=== PATIENT | female | born 1995 | race Caucasian/White ===

== ENCOUNTER 2017-02-16 17:51 | Observation (INO) ==
[2017-02-16] MEDS ORDERED: 0.9 % Sodium Chloride 1,000 ML IVC ONE ×2 (18:49→21:04)
--- NOTE | 2017-02-16 18:53 | Emergency Department Note ---
Disposition Clinical Impression: SIRS (systemic inflammatory response syndrome), Drug abuse Cellulitis Qualifiers: Site of cellulitis: extremity Site of cellulitis of extremity: upper extremity Laterality: right Qualified Code(s): L03.113 - Cellulitis of right upper limb Disposition: Admitted As Inpatient Condition: Fair Referrals: NO,PCP [Primary Care Provider] - Forms: ED Satisfaction Letter Time of Disposition: 20:55 Skin/Abscess/FB HPI Chief complaint: ED Skin/Abscess/Foreign Body Stated complaint: abscess R arm Time Seen by Provider: 02/16/17 18:29 Source: patient, family Mode of arrival: ambulatory Limitations: no limitations Nursing Notes Reviewed: Yes Vital Signs Reviewed: Yes HPI Narrative: Patient is a 21-year-old female who presents to [facility] ED with a chief complaint of right arm infection. Patient states that it has been there the last 3 days. Patient admits to injecting IV heroin at this region. Denies having an updated tetanus shot. Patient has had intermittent fevers at home. No nausea, vomiting. No problems with shortness of breath or chest pain. No problems with urination or bowel movements. Onset (ago): day(s) Tetanus Up to Date: no Location: RUE Severity: moderate Quality: aching Consistency: constant, Worsening Improves with: none Worsens with: palpation, movement Context: IVDA Associated symptoms: Reports: fever, chills. Denies: nausea, vomiting, cough, shortness of breath Treatments prior to arrival: none Home Medications Medication Instructions Recorded Confirmed No Known Home Drugs 02/16/17 02/16/17 Allergies Allergy/AdvReac Type Severity Reaction Status Date / Time No Known Allergies Allergy Verified 07/09/15 10:17 All systems ED: reviewed and negative except as stated. Past Medical History - Past Medical History Attestation: Yes The following information was validated with the patient. Source: patient Medical history: Reports: asthma Surgical history: Reports: non-contributory Psychiatric history: Reports: depression BLIND EYELETTER history: Reports: no BLIND EYELETTER history : 1 Para: 1 Ab: 0 - Social History Smoking Status: Current every day smoker Smokeless Tobacco Status: No Alcohol use: Reports: none Drug use: Reports: IVDU Physical Exam - General Limitations: no limitations General appearance: alert, in no apparent distress - Head Head exam: atraumatic, normocephalic, normal inspection - Eye Eye exam: Present: normal appearance, PERRL, EOMI - ENT ENT exam: normal exam, normal oropharynx, mucous membranes moist - Neck Neck exam: Present: normal inspection, full ROM, trachea midline - Chest Chest inspection: Present: normal inspection, symmetric chest wall rise - Respiratory Respiratory exam: Present: normal lung sounds bilaterally - Cardiovascular Cardiovascular exam: Present: normal rhythm, tachycardia, normal heart sounds - Abdominal Exam Abdominal exam: Present: soft, Non-Tender. Absent: tenderness, distention, guarding, rebound, rigidity - Expanded Upper Extremity Exam Arm exam: Present: tenderness, swelling, erythema Elbow exam: Present: tenderness, swelling, erythema - Back Exam Back exam: Present: normal inspection, full ROM. Absent: tenderness - Neurological Exam Neurological exam: Present: alert, oriented X3 - Psychiatric Psychiatric exam: Present: normal affect, normal mood - Skin Skin exam: Present: warm, dry, intact, erythema (R lateral arm) Course Course Narrative: Patient seen and examined. Right arm cellulitis. I used bedside ultrasound which she does appear to have an abscess. However due to surrounding vasculature, we will go ahead and CT her arm to evaluate the depth of this abscess. Patient is tachycardic and has low-grade fever here. Ahead and do a septic workup. We will start an IV and started her on IV vancomycin. - Consultations Consultation #1: I spoke with Dr. Casey leary to admit. Time: 22:30 Vital Signs Temperature 99.1 F 02/16/17 18:00 Pulse Rate 124 02/16/17 18:00 Respiratory Rate 16 02/16/17 18:00 Blood Pressure 106/73 02/16/17 18:00 O2 Sat by Pulse Oximetry 97 02/16/17 18:00 Temperature 99.1 F 02/16/17 18:00 Pulse Rate 124 02/16/17 18:00 Respiratory Rate 16 02/16/17 18:00 Blood Pressure 106/73 02/16/17 18:00 O2 Sat by Pulse Oximetry 97 02/16/17 18:00 Oxygen Delivery Oxygen Delivery Room Air Skin/Abscess/Foreign Body - Medical Records Medical records reviewed: Yes I reviewed the patient's medical records. - Lab Data Lab results reviewed: Yes I reviewed the patient's lab results. Result diagrams: 02/16/17 19:43 02/16/17 19:43 Lab Results 02/16/17 02/16/17 02/16/17 Range/Units 19:43 19:43 21:44 WBC 16.5 H (4.3-11.1) K/mcL RBC 3.64 L (3.82-4.97) M/mcL Hgb 11.5 (11.5-15.4) g/dL Hct 34.9 L (35.3-44.9) % MCV 95.9 (83.0-100.0) fL MCH 31.6 (28.0-33.3) pg MCHC 33.0 (31.6-35.5) g/dL RDW 12.5 (11.5-14.5) % Plt Count 168 (140-400) K/mcL MPV 11.8 (9.4-12.4) fL Immature Gran % 0.5 (0-4) % Seg Neutrophils % 77.0 % Lymphocytes % 15.1 % Monocytes % 7.2 % Eosinophils % 0.1 % Basophils % 0.1 % Neutrophils # 12.7 H (1.6-8.9) K/mcL Lymphocytes # 2.5 (0.6-4.6) K/mcL Monocytes # 1.2 (0.0-1.3) K/mcL Eosinophils # 0.0 (0.0-0.6) K/mcL Basophils # 0.0 (0.0-0.2) K/mcL Sodium 134 L (136-145) mEq/L Potassium 3.9 (3.5-4.5) mEq/L Chloride 103 (98-109) mEq/L Carbon Dioxide 20 (19-29) mEq/L BUN 7 (7-20) mg/dL Creatinine 0.60 (0.57-1.11) mg/dL Est GFR ( Amer) > 60 (> 60) Est GFR (Non-Af Amer) > 60 (> 60) BUN/Creatinine Ratio 12 (6-26) Glucose 111 H (70-99) mg/dL Calculated Osmolality 277 L (280-300) Lactic Acid 1.0 (0.5-2.2) mmol/L Calcium 8.8 (8.6-10.8) mg/dL - Radiology Data Radiology results reviewed: Yes I reviewed the patient's radiology results. Attestation Statement - Attestation Attestation: I examined this patient and my medical decision-making was reviewed with the GRADUATE STUDIES DEAN/PA/Advanced Practice Nurse/Resident Physician. I agree with the documented findings, disposition and treatment plan as described except to the extent set forth below. This is a 21 yo F who presents with an abscess to her right antecubital area status post using IV drugs. Patient also has swelling and erythema noted to her right hand. Patient states that is just the result of what she was shooting up. Patient states she has been running fevers at home the highest was 101. Patient denies any other systemic complaints. We are doing basic labs and cultures on patient. Patient's ultrasound did reveal a pocket of fluid and she will most likely be admitted with IV antibiotics.
[2017-02-16] MEDS ORDERED: Vancomycin 1 EACH in D5% in Water 250 ML IVPB SCH (19:00)
[2017-02-16 19:55] LABS: Basophils % 0.1 %; Eosinophils % 0.1 %; Hematocrit 34.9 % (35.3-44.9); Hemoglobin 11.5 g/dL (11.5-15.4); Immature Granulocytes % 0.5 % (0-4); Lymphocytes # 2.5 K/mcL (0.6-4.6); Lymphocytes % 15.1 %; Mean Corpuscular Hemoglobin 31.6 pg (28.0-33.3); Mean Corpuscular Volume 95.9 fL (83.0-100.0); Mean Platelet Volume 11.8 fL (9.4-12.4); Monocytes # 1.2 K/mcL (0.0-1.3); Monocytes % 7.2 %; Neutrophils # 12.7 K/mcL (1.6-8.9); Platelet Count 168 K/mcL (140-400); Red Blood Count 3.64 M/mcL (3.82-4.97); Red Cell Distribution Width 12.5 % (11.5-14.5)
[2017-02-16 20:04] LABS: BUN/Creatinine Ratio 12 (6-26); Blood Urea Nitrogen 7 mg/dL (7-20); Calcium 8.8 mg/dL (8.6-10.8); Carbon Dioxide 20 mEq/L (19-29); Chloride 103 mEq/L (98-109); Glucose 111 mg/dL (70-99); Osmolality,Calculated 277 (280-300); Sodium 134 mEq/L (136-145); eGFR For African Americans > 60 (> 60); eGFR For Non-African Americans > 60 (> 60)
[2017-02-16 20:05] LABS: Potassium 3.9 mEq/L (3.5-4.5)
[2017-02-16] MEDS ORDERED: Vancomycin 750 MG in D5% in Water 250 ML IVPB ONE (20:07)
[2017-02-16] MEDS ORDERED: *HR* Morphine 2 MG/ML SYRINGE IVP ONE (23:51)
--- NOTE | 2017-02-17 00:47 | Internal Med History&Physical ---
Date of Encounter: 02/17/17 Time of Encounter: 00:30 Assessment and Plan (1) Sepsis Current visit: Yes Status: Acute Patient current sepsis due to cellulitis in right antecubital fossa. Patient having tachycardia, tachypnea, leukocytosis, and right arm site of infection. Current patient cellulitis due to IV drug use. She does report liking her needles and so will cover for potential oral pathogens as well as MRSA. Continue empiric vancomycin Continue empiric Unasyn Patient received 2 L bolus normal saline in the emergency department, we will continue fluids at 125 mL an hour Tylenol for pain and fever Ketorolac for mild pain Will obtain additional lactic acid We will obtain blood cultures Qualifiers: Sepsis type: sepsis due to unspecified organism Qualified Code(s): A41.9 - Sepsis, unspecified organism (2) Cellulitis Current visit: Yes Status: Acute Patient noted to have area of cellulitis around right antecubital fossa. Prior cellulitis marked emergency department and patient appears to have erythema outside border when seen in admission. No discrete abscess seen on CT examination. Plan as above Qualifiers: Site of cellulitis: extremity Site of cellulitis of extremity: upper extremity Laterality: right Qualified Code(s): L03.113 - Cellulitis of right upper limb (3) Drug abuse Current visit: Yes Status: Acute Patient reports using heroin since she was almost 15 years old. She reports is clean needles but reports licking needles prior to use (4) DVT prophylaxis Current visit: Yes Status: Acute Encouraged patient ambulation (5) Tobacco abuse Current visit: Yes Status: Acute When necessary nicotine patch Encourage smoking cessation Internal Medicine - H&P: HPI Chief complaint: Arm Pain Admitted From: Home Plans for Post Hospital Care: Home History of present illness: Ms. Virk is a 21 year old female with medical history significant for childhood asthma and continued IV drug usage. She reports that starting 3 days ago after attempting to inject heroin and missing in her right antecubital fossa she began having pain, erythema, and swelling. She states this progressed increased in size over the next 3 days causing her significant pain. She reports the pain as being sharp in quality and 9.5/10 in severity. She describes wound as being hot to the touch and red, causing her hand and arm to swell. She denies any drainage from the wound. She states that she uses clean needles, but does lick her needles prior to use. She says she has felt sick in the last 3 days, reporting fever/chills, weakness, headache, neck pain. She denies photophobia, denies nausea/vomiting, denies shortness of breath. Past Med Surg Social Fam HX - Past Medical History Medical history: asthma Psychiatric history: depression - Past Surgical History Surgical History: non-contributory - Social History Smoking Status: Current every day smoker Packs per day: 1 Smokeless Tobacco Status: No Alcohol use: none Drug use: ABDI Internal Medicine - H&P: Meds No Known Home Drugs 02/16/17 [History] Allergies No Known Allergies Allergy (Verified 07/09/15 10:17) - Constitutional Constitutional: as per HPI, chills, fever(s), weakness, no anorexia, no fatigue - EENT Eyes: no change in vision, no pain, no photophobia Nose, mouth and throat: neck pain, no dysphagia, no sore throat - Cardiovascular Cardiovascular ROS IM: no chest pain, no diaphoresis, no dyspnea, no lightheadedness, no palpitations, no syncope - Respiratory Respiratory: no cough, no dyspnea, no wheezing, no excessive phlegm production - Gastrointestinal Gastrointestinal: no abdominal pain, no diarrhea, no hematemesis, no hematochezia, no melena, no nausea, no vomiting - Genitourinary Genitourinary: no dysuria, no flank pain, no hematuria - Musculoskeletal Musculoskeletal ROS IM: as per HPI, neck pain, no numbness, no tingling - Integumentary Integumentary IM: as per HPI, erythema, no pruritus, no jaundice - Neurological Neurological ROS: no confusion, no convulsions, no focal weakness, no numbness, no tingling, no tremor(s) - Constitutional Vitals: Temp Pulse Resp BP Pulse Ox 99.0 F 108 20 131/87 100 02/16/17 23:21 02/16/17 23:21 02/16/17 23:21 02/16/17 23:21 02/16/17 23:21 Exam: General: Cooperative, pleasant, no acute distress, alert and oriented 3, answers questions appropriately Head: Normocephalic, atraumatic Eye: Conjunctiva pink, sclera anicteric, EOMI, PERRL Neck: Supple, trachea midline, range of motion full Respiratory: No accessory muscle usage, clear to auscultation bilaterally, no wheezes/rhonchi/rales appreciated Cardiovascular: Tachycardia, regular rhythm, S1 and S2 present, no murmurs/rubs/ gallops/clicks appreciated GI/abdominal: Nondistended, nontender, soft, normal bowel sounds, no peritoneal signs Extremities: No calf tenderness, noncyanotic, no pedal edema appreciated, warm, lower extremity pulses palpable and symmetrical, non-pitted edema noted and patient right upper extremity distal to antecubital fossa Neurological: Alert and oriented 3, no facial droop, no focal deficits Skin: Dry, intact, erythema noted to exceed boundary place a marker of cellulitis in emergency department, area of cellulitis tenderness to touch, hot on palpation Internal Med - H&P Results - Labs CBC & Chem 7: 02/17/17 03:37 02/17/17 03:37 - Impressions Impressions Upper Extremity CT 02/16/17 19:42 IMPRESSION: 1. Subcutaneous fat stranding and skin thickening in the right upper extremity most probably affecting the antecubital fossa compatible cellulitis. No drainable fluid collection. 2. No acute osseous abnormality. D/ / Haroldo Fraser MD / Haroldo Fraser MD Interpreting Provider: Haroldo Fraser MD
[2017-02-17] MEDS ORDERED: Ondansetron 4 MG/2 ML VIAL IVP PRN (00:48)
[2017-02-17] MEDS ORDERED: Naloxone 0.4 MG/ML INJ IVP PRN (00:48)
[2017-02-17] MEDS ORDERED: Acetaminophen 325 MG TABLET PO PRN (00:48)
[2017-02-17] MEDS ORDERED: Vancomycin (wt based) 1,000 MG VIAL IVPB SCH (01:00)
[2017-02-17] MEDS ORDERED: 0.9 % Sodium Chloride 1,000 ML IVC SCH (01:00)
[2017-02-17] MEDS: 0.9 % Sodium Chloride 1,000 ML IVC SCH ×2 (01:18→11:00)
[2017-02-17] MEDS: Famotidine 20 MG TABLET PO SCH ×2 (01:32→08:50)
[2017-02-17] MEDS ORDERED: Nicotine 14 MG PATCH.TD24 TD PRN (01:49)
[2017-02-17] MEDS: Ketorolac 30 MG/ML VIAL IVP PRN ×2 (03:28→12:20)
[2017-02-17 03:48] LABS: Basophils % 0.2 %; Eosinophils # 0.1 K/mcL (0.0-0.6); Eosinophils % 0.6 %; Hematocrit 30.2 % (35.3-44.9); Immature Granulocytes % 0.6 % (0-4); Lymphocytes # 2.8 K/mcL (0.6-4.6); Lymphocytes % 21.8 %; Mean Corpuscular HGB Conc 33.1 g/dL (31.6-35.5); Mean Corpuscular Hemoglobin 31.3 pg (28.0-33.3); Mean Corpuscular Volume 94.7 fL (83.0-100.0); Mean Platelet Volume 11.6 fL (9.4-12.4); Monocytes % 7.7 %; Neutrophils # 8.8 K/mcL (1.6-8.9); Platelet Count 154 K/mcL (140-400); Red Blood Count 3.19 M/mcL (3.82-4.97); Red Cell Distribution Width 12.6 % (11.5-14.5); Segmented Neutrophils % 69.1 %
[2017-02-17 04:04] LABS: BUN/Creatinine Ratio 7 (6-26); Blood Urea Nitrogen 4 mg/dL (7-20); Calcium 8.1 mg/dL (8.6-10.8); Carbon Dioxide 18 mEq/L (19-29); Chloride 110 mEq/L (98-109); Glucose 97 mg/dL (70-99); Osmolality,Calculated 281 (280-300); Potassium 3.8 mEq/L (3.5-4.5); Sodium 137 mEq/L (136-145); eGFR For African Americans > 60 (> 60); eGFR For Non-African Americans > 60 (> 60)
[2017-02-17] MEDS: Ampicillin/Sulbactam 3,000 MG in 0.9 % Sodium Chloride Mini Bag 100 ML IVPB SCH ×2 (06:29→12:18)
[2017-02-17] MEDS ORDERED: Piperacillin/Tazobactam 3.375 GM in D5% in Water (Mini-Bag+) 100 ML IVPB SCH (08:00)
[2017-02-17] MEDS ORDERED: Lactobacillus 1 EACH CAP.SPRINK PO SCH (09:00)
[2017-02-17] MEDS ORDERED: Vancomycin 1,000 MG in D5% in Water 250 ML IVPB SCH (09:00)
--- NOTE | 2017-02-17 15:17 | Internal Med Progress Note ---
<Kristi Greenberg - Last Filed: 02/17/17 15:52> Date of Encounter: 02/17/17 Time of Encounter: 15:15 - Assessment and plan (1) Sepsis Current Visit: Yes Status: Acute Assessment and plan: Patient current sepsis due to cellulitis in right antecubital fossa. Patient having tachycardia, tachypnea, leukocytosis, and right arm site of infection. Cellulitis due to IV drug use. She does report licking her needles and so will cover for potential oral pathogens as well as MRSA. Lactic Acid 1. Blood Cultures pending. Plan: -Continue vancomycin -Continue Unasyn -Continue IVF at 125 mL an hour -Tylenol for pain and fever -Ketorolac for mild pain -Will get ECHO today, will need DOUGLAS to further evaluate valves for vegetations secondary to IVDU. Qualifiers: Sepsis type: sepsis due to unspecified organism Qualified Code(s): A41.9 - Sepsis, unspecified organism (2) Cellulitis Current Visit: Yes Status: Acute Assessment and plan: Per above plan Qualifiers: Site of cellulitis: extremity Site of cellulitis of extremity: upper extremity Laterality: right Qualified Code(s): L03.113 - Cellulitis of right upper limb (3) Drug abuse Current Visit: Yes Status: Acute Assessment and plan: Patient reports heroin use since age [age]. She states she uses clean needles , but does lick them prior to use. (4) Tobacco abuse Current Visit: Yes Status: Acute Assessment and plan: Nicotine patch PRN (5) DVT prophylaxis Current Visit: Yes Status: Acute Assessment and plan: ambulation encouraged. - Subjective Interval history: Patient seen and examined. Complains of pain the right arm. She states that the reddness has not spread obove line drawn in ED, but has spread laterally. She states that she has never had an infection like this before, but has had swelling in the right hand from "cutting dope." - Constitutional Vitals: Temp Pulse Resp BP Pulse Ox 98.4 F 95 15 101/61 98 02/17/17 07:05 02/17/17 07:05 02/17/17 07:05 02/17/17 07:05 02/17/17 07:05 General appearance: Present: cooperative, disheveled, A&O X 3, no acute distress , answers questions appropriately - Head Head exam: Present: atraumatic, normocephalic - Eye Eye exam: Present: EOMI, PERRL, conjuntiva pink, sclera anicteric Pupils: Present: PERRL - Neck Neck exam general surgery: Present: supple, trachea midline. Absent: lymphadenopathy - Respiratory Respiratory exam: Present: CTAB. Absent: accessory muscle use, rales, rhonchi, wheezes - Cardiovascular Cardiovascular exam: Present: +S1, +S2, tachycardia. Absent: clicks, diastolic murmur, gallop, rubs, systolic murmur - GI/Abdominal GI/Abdominal exam: Present: normal bowel sounds, soft, no peritoneal signs. Absent: distended, tenderness - Extremities Exam Extremities exam: Present: normal capillary refill, radial pulses palpable and symetrical. Absent: calf tenderness, pedal edema - Expanded Upper Extremities Exam Upper Arm exam: Present: erythema (right AC fossa with lateral spread. ), full ROM (joints in right hand/wrist/elbow. Pain with movement of right elbow.), swelling, tenderness Hand wrist exam: Present: swelling (right) Vascular exam: Present: normal capillary refill. Absent: vascular compromise - Neurological Exam Neurological exam: Present: alert, oriented X3, no focal deficits, strengths equal and symetr throughout. Absent: motor sensory deficit, facial droop, speech deficit - Expanded Neurological Exam Sensory exam: upper extremity light touch: Normal - Psychiatric Psychiatric exam: Present: agitated - Skin Additional comments: erythema noted on right AC that is hot, tender to touch. Does not exceed medhat made in ER superiorly or posteriorly, but there is medial and lateral spread around joint. Internal Medicine: Result - Labs CBC & Chem 7: 02/17/17 03:37 02/17/17 03:37 Labs: Short CBC 02/17/17 Range/Units 03:37 WBC 12.7 H (4.3-11.1) K/mcL Hgb 10.0 L D (11.5-15.4) g/dL Hct 30.2 L (35.3-44.9) % Plt Count 154 (140-400) K/mcL Neutrophils # 8.8 (1.6-8.9) K/mcL BMP 02/17/17 03:37 Sodium 137 Potassium 3.8 Chloride 110 H Carbon Dioxide 18 L BUN 4 L Creatinine 0.55 L Glucose 97 Calcium 8.1 L - Diagnostic Studies Other Images Additional comments: Upper Extremity CT 02/16/17 19:42 IMPRESSION: 1. Subcutaneous fat stranding and skin thickening in the right upper extremity most probably affecting the antecubital fossa compatible cellulitis. No drainable fluid collection. 2. No acute osseous abnormality. D/ / Haroldo Fraser MD / Haroldo Fraser MD Interpreting Provider: Haroldo Fraser MD Consult Discharge Plan - Plan Referrals: NO,PCP [Primary Care Provider] - <Prince Finley H - Last Filed: 02/17/17 16:02> - Constitutional Vitals: Temp Pulse Resp BP Pulse Ox 98.6 F 108 16 106/69 100 02/17/17 15:23 02/17/17 15:23 02/17/17 15:23 02/17/17 15:23 02/17/17 15:23 Internal Medicine: Result - Labs CBC & Chem 7: 02/17/17 03:37 02/17/17 03:37 Labs: Short CBC 02/17/17 Range/Units 03:37 WBC 12.7 H (4.3-11.1) K/mcL Hgb 10.0 L D (11.5-15.4) g/dL Hct 30.2 L (35.3-44.9) % Plt Count 154 (140-400) K/mcL Neutrophils # 8.8 (1.6-8.9) K/mcL BMP 02/17/17 03:37 Sodium 137 Potassium 3.8 Chloride 110 H Carbon Dioxide 18 L BUN 4 L Creatinine 0.55 L Glucose 97 Calcium 8.1 L - Attending Attestation switch to doxy , stop vanc if worse will need to go to vanc IV I examined this patient and my medical decision-making was reviewed with the CUSTOMER COUNTER REPRESENTATIVE/PA/Advanced Practice Nurse/Resident Physician. I agree with the documented findings, disposition and treatment plan as described except to the extent set forth below.
[2017-02-17 15:24] VITALS: BP 106/69
[2017-02-17] MEDS ORDERED: Doxycycline 100 MG in 0.9 % Sodium Chloride Mini Bag 100 ML IVPB SCH (18:00)
[2017-02-17] MEDS ORDERED: Aminoglycoside Consult 1 EACH MC ONE (18:15)
--- NOTE | 2017-02-17 18:26 | Discharge Summary ---
Date of Encounter: 02/17/17 Time of Encounter: 18:22 - Discharge Diagnosis (1) Cellulitis Priority: Primary Status: Acute Comments: sepsis due to cellulitis in right antecubital fossa. Qualifiers: Site of cellulitis: extremity Site of cellulitis of extremity: upper extremity Laterality: right Qualified Code(s): L03.113 - Cellulitis of right upper limb (2) Drug abuse Priority: Secondary Status: Acute (3) Sepsis Priority: Primary Status: Acute Qualifiers: Sepsis type: sepsis due to unspecified organism Qualified Code(s): A41.9 - Sepsis, unspecified organism (4) Tobacco abuse Priority: Primary Status: Acute - Discharge Medications Home Medications: No Known Home Drugs 02/16/17 [History] Allergies/Adverse Reactions: Allergies No Known Allergies Allergy (Verified 07/09/15 10:17) Procedures/tests Complete & Pending: Procedures Performed prior 72 hours Category Date Time Status EV echocardiogram Routine Y 02/17/17 15:51 Ordered Date of admission: 02/16/17 23:51 Primary care physician: PCP NO Consults: 02/17/17 06:49 Consult to Gun Perforator Loader [CONS] Routine Reason for SW Consult: Concern for patient continued drug use and whether there are resources available as outpatien for her. - Patient Status Disposition: Left Against Medical Advice Condition: Fair - Discharge Instructions Follow Up With: NO,PCP [Primary Care Provider] - Hospital course: Ms. Virk is a 21 year old female with medical history significant for childhood asthma and continued IV drug usage. She reported that starting 3 days ago after attempting to inject heroin and missing in her right antecubital fossa she began having pain, erythema, and swelling. She stated this progressed increased in size over the next 3 days causing her significant pain. She reported the pain as being sharp in quality and 9.5/10 in severity. She described wound was hot to the touch and red, causing her hand and arm to swell. was given vancomycin IV and Unasyn. The patient was offered to be switched to doxycycline to avoid chcf abx therapy. SHe was not found at her room and apparently left without anyone noticing. I was made aware that the patient left - Time Spent with Patient Total time spent providing and/or coordinating discharge services: Less than 30 minutes - Constitutional Vitals: Temp Pulse Resp BP Pulse Ox 98.6 F 108 16 106/69 100 02/17/17 15:23 02/17/17 15:23 02/17/17 15:23 02/17/17 15:23 02/17/17 15:23 General appearance: Present: cooperative, disheveled, A&O X 3, no acute distress , answers questions appropriately
== END 2017-02-17 18:16 | disposition left against medical advice (07) ==
LOC: 3BNU 17:51 → EMEROO 17:51 → 3BNU 23:09 → SUATTDRO 23:51
PROVIDERS: ADMIT Internal Medicine; ATTEND Internal Medicine

== ENCOUNTER 2020-07-12 12:14 | Observation (INO) ==
[2020-07-12] MEDS ORDERED: Gadolinium Contrast Agent (WT Based) IV PRN (12:22)
[2020-07-12] MEDS ORDERED: Naloxone 0.4 MG/ML INJ IVP PRN (20:27)
[2020-07-12] MEDS ORDERED: Ondansetron ODT 4 MG TAB.RAPDIS SL PRN (20:27)
[2020-07-12] MEDS ORDERED: 0.9 % Sodium Chloride 1,000 ML IVC SCH (20:45)
[2020-07-12 21:14] LABS: Albumin 3.7 g/dL (3.5-5.7); Bilirubin,Indirect 0.3 mg/dL (0.0-1.0); Bilirubin,Total 0.3 mg/dL (0.3-1.0); Globulin 3.7 g/dL (2.4-3.5); Phosphorous 4.1 mg/dL (2.7-4.5); Total Protein 7.4 g/dL (6.4-8.9)
[2020-07-12 21:26] LABS: Amorphous Sediment,Urine Few per hpf (None-Few); Bacteria,Urine Moderate per hpf (None-Few); Bilirubin,Urine Negative (Negative); Blood,Urine Negative (Negative); Clarity,Urine Ex.Turbid (Clear); Color,Urine Yellow (Yellow); Glucose,Urine (UA) Normal (Normal); Ketones,Urine Negative (Negative); Leukocyte Esterase,Urine Negative (Negative); Mucus,Urine Many per lpf (None-Few); Nitrite,Urine Positive (Negative); Protein,Urine 30 mg/dL (Neg-Trace); RBC,Urine 0-3 per hpf (0-3); Renal Epithelial Cells,Urine Few per hpf (None-Few); Specific Gravity,Urine > 1.030 (1.010-1.025); Squamous Epithelial Cell,Urine Few per hpf (None-Few); Urobilinogen,Urine Normal (Normal); WBC,Urine 0-3 per hpf (0-3)
[2020-07-12] MEDS ORDERED: Nicotine 14 MG PATCH.TD24 TD SCH (21:30)
[2020-07-12 21:32] LABS: Amphetamine Screen,Urine Positive ng/mL (Cutoff=1000); Barbiturate Screen,Urine Negative ng/mL (Cutoff=200); Benzodiazepines Screen,Urine Negative ng/mL (Cutoff=200); Cannabinoid Screen,Urine Negative ng/mL (Cutoff = 50); Cocaine Screen,Urine Negative ng/mL (Cutoff= 300); Opiate Screen,Urine Positive ng/mL (Cutoff=300); Phencyclidine Screen,Urine Negative ng/mL (Cutoff=25)
[2020-07-12 22:08] LABS: Hepatitis B Surface Antigen Nonreactive (Nonreactive)
[2020-07-12 22:37] LABS: HIV-1&2 Antibody & p24 Ag Nonreactive (Nonreactive)
[2020-07-12 22:38] LABS: Hepatitis B Core IgM Nonreactive (Nonreactive)
[2020-07-12 22:40] LABS: Hepatitis A Antibody IgM Nonreactive (Nonreactive)
[2020-07-13 05:02] LABS: Hepatitis C Virus Antibody Reactive (Nonreactive)
[2020-07-13 06:46] VITALS: BP 107/60
== END 2020-07-13 08:45 | disposition left against medical advice (07) ==
LOC: EMEROOARM 12:14 → 3NENU 12:14 → SUATTDRO 21:09 → 3NENU 21:50
PROVIDERS: ADMIT Family Medicine; ATTEND Internal Medicine